=== PATIENT | female | born 1960 | race Caucasian/White ===

== ENCOUNTER 2022-10-15 13:42 | Emergency (ER) | payer OTHER ==
[2022-10-15 13:49] VITALS: BP 114/78; PULSE 74; RESP 20; TEMP 98; BMI 24.7
[2022-10-15] MEDS ORDERED: KETOROLAC TROMETHAMINE 30 MG/1 ML VIAL IM ONE (14:28)
[2022-10-15] MEDS ORDERED: KETOROLAC TROMETHAMINE 30 MG/1 ML VIAL ONE (14:34)
== END 2022-10-15 14:48 | disposition home or self-care (01) ==
LOC: JERFT 13:42
PROC: 3E023GC Introduction of Other Therapeutic Substance into Muscle, Percutaneous Approach (ICD-10-PCS; principal; 2022-10-15)
DX: S70.12XA Contusion of left thigh, initial encounter (principal); W19.XXXA Unspecified fall, initial encounter; W22.8XXA Striking against or struck by other objects, initial encounter
CPT/HCPCS: 73521-TC-FY; 99284-25

== ENCOUNTER 2023-11-04 15:01 | Emergency (ER) | payer OTHER ==
[2023-11-04 15:05] VITALS: BMI 24.7
[2023-11-04] MEDS ORDERED: ACETAMINOPHEN 325 MG TABLET (FP) PO ONE (15:56)
[2023-11-04] MEDS ORDERED: ACETAMINOPHEN 325 MG TABLET (FP) ONE (16:03)
[2023-11-04 18:33] VITALS: BP 134/80; PULSE 69; RESP 16; TEMP 98.9
== END 2023-11-04 18:34 | disposition home or self-care (01) ==
LOC: JERFT 15:01
DX: J01.90 Acute sinusitis, unspecified (principal); R09.81 Nasal congestion; R51.9 Headache, unspecified; R07.0 Pain in throat; R05.9 Cough, unspecified; R50.9 Fever, unspecified; Z20.822 Contact with and (suspected) exposure to COVID-19
CPT/HCPCS: 0241U-QW; 71046-TC-FY; 99284-25

== ENCOUNTER 2025-02-20 19:10 | Emergency (ER) | payer OTHER ==
[2025-02-20 19:31] VITALS: BP 142/73; PULSE 67; RESP 18; TEMP 98.7; BMI 23.9
== END 2025-02-20 20:12 | disposition home or self-care (01) ==
LOC: JERFT 19:10 → JER 19:10 → JERFT 20:12
DX: J01.80 Other acute sinusitis (principal)
CPT/HCPCS: 99283-25